=== PATIENT | male | born 1960 | race Caucasian/White ===

== ENCOUNTER 2018-06-19 03:26 | Emergency (ER) | payer OTHER ==
[2018-06-19] MEDS ORDERED: LIDOCAINE 1%/EPINEPHRINE INJ 20 ML VIAL INJ ONE (04:17)
[2018-06-19] MEDS ORDERED: DIPH/PERTUSS(ACELL)/TETANUS VAC/PF 0.5 ML SYR (>=10YO) IM ONE (04:18)
--- NOTE | 2018-06-19 04:59 | ER Document Report ---
ED General - General Chief Complaint: Laceration Stated Complaint: FINGER INJURY Time Seen by Provider: 06/19/18 03:47 Notes: Patient is a very pleasant 57-year-old male who presents with complaint of laceration to left thumb. Laceration occurred at the interphalangeal joint on the palmar aspect of the left thumb. Patient says he cut on glass while moving. He is moving furniture to go back to [place]. Patient says it happened around 6 PM. Denies any numbness or weakness in the thumb. Unsure when last tetanus shot was. No other complaints at this time. TRAVEL OUTSIDE OF THE [place] IN LAST 30 DAYS: No - Related Data Allergies/Adverse Reactions: No Known Allergies Allergy (Unverified 07/01/12 11:53) Past Medical History - Social History Smoking Status: Current Every Day Smoker Chew tobacco use (# tins/day): No Frequency of alcohol use: None Drug Abuse: None Family History: Reviewed & Not Pertinent Patient has suicidal ideation: No Patient has homicidal ideation: No - Past Medical History Cardiac Medical History: Denies: Hx Coronary Artery Disease, Hx Heart Attack, Hx Hypertension Pulmonary Medical History: Reports: Hx Asthma - last attack approx 2 years ago Denies: Hx Bronchitis, Hx COPD, Hx Pneumonia Neurological Medical History: Denies: Hx Cerebrovascular Accident, Hx Seizures Renal/ Medical History: Denies: Hx Peritoneal Dialysis Musculoskeletal Medical History: Reports Hx Arthritis Past Surgical History: Reports: Hx Orthopedic Surgery. Denies: Hx Pacemaker - Immunizations Hx Diphtheria, Pertussis, Tetanus Vaccination: No Review of Systems - Review of Systems Notes: My Normal Review Basic REVIEW OF SYSTEMS: CONSTITUTIONAL : Denies fever, chills, or sweats. Denies recent illness. MUSCULOSKELETAL: Some pain into left thumb. SKIN: Denies rash or skin lesions. NEUROLOGICAL: Denies sensory or motor loss. ALL OTHER SYSTEMS REVIEWED AND NEGATIVE. Physical Exam - Vital signs Vitals: Temp Pulse Resp BP Pulse Ox 97.8 F 65 16 149/96 H 96 06/19/18 03:38 06/19/18 03:38 06/19/18 03:38 06/19/18 03:38 06/19/18 03:38 - Notes Notes: General Appearance: Well nourished, alert, cooperative, no acute distress, no o bvious discomfort. Well-appearing. Vitals: reviewed, See vital signs table. Extremities: strength 5/5 in all extremities, good pulses in all extremities, patient is good distal sensation in his thumb. He is able flex and extend the thumb without difficulty. He has approximately 2 cm laceration that is at the crease of the interphalangeal joint on the palmar aspect of the thumb. Evaluation of the laceration appears that the patient does have visible injury to tendon on the medial aspect of the thumb. Despite this patient is still able to fully oppose the thumb with the fifth digit. He is able to abduct and adduct the thumb. Is able to flex and extend the thumb. Skin: warm, dry, appropriate color, no rash Neuro: speech clear, oriented x 3, normal affect, responds appropriately to qu estions. Course - Re-evaluation Re-evalutation: 06/19/18 05:32 Patient was given tetanus shot. Laceration was thoroughly irrigated and cleaned and sutured closed. Because of the tendon injury patient was placed with aluminum splint to help prevent hyperflexion and hyperextension of the thumb. I encouraged patient to follow-up closely with the orthopedic or hand surgeon within the week. I informed him that they usually want to evaluate this and repair it within a week if they feel repair is necessary. Patient is moving to [place] today. He says that he already has a doctor in [place] and would call them to help set up an appointment. I encouraged him to have the stitches removed in 7 days. I encouraged him to return to ER if he has redness or swelling, signs of infection, or if he has any further concerns. Patient agrees with plan and will be discharged home. Dictation of this chart was performed using voice recognition software; therefore, there may be some unintended grammatical errors. - Vital Signs Vital signs: Temp Pulse Resp BP Pulse Ox 97.8 F 81 19 144/90 H 95 06/19/18 05:15 06/19/18 05:15 06/19/18 05:15 06/19/18 05:15 06/19/18 05:15 Procedures - Immobilization Left Thumb Pre-Proc Neuro Vasc Exam: Normal Immobilizer type: Other - aluminum finger splint Performed by: Provider Post-Proc Neuro Vasc Exam: Normal - Laceration/Wound Repair Left Thumb Wound length (cm): 2 Wound's Depth, Shape: Linear Anesthetic type: 1% Lidocaine w/epi Volume Anesthetic (mLs): 2 Wound explored: Clean Irrigated w/ Saline (mLs): 30 Wound Repaired With: Sutures Suture Size/Type: 5:0, Ethilon Number of Sutures: 4 Post-procedure wound care: Sterile dressing applied, Splint applied Complications: No Discharge - Discharge Clinical Impression: Laceration Condition: Good Disposition: HOME, SELF-CARE Additional Instructions: LACERATION CARE: Your laceration has been sutured to keep the skin edges aligned during healing. The time of suture removal depends on the nature and location of your cut. Please follow the care instructions the doctor has outlined for you and return for further care, according to the schedule you've been given. Keep the wound and dressing clean. Unless you were told otherwise, you may shower daily, blotting the wound dry with a clean, unused towel. At other times, If the dressing gets wet or blood soaked, remove it and blot the wound dry, then reapply a new dressing. Unless you were instructed otherwise, dressings should be changed at least daily. If any signs of infection occur (swelling, redness, drainage, increasing tenderness, red streaks, tender lumps in the armpit or groin above the laceration, or fever), see the doctor immediately. SOAP CLEANSING: Gently wash the wound daily using a mild soap (like Ivory, Phisoderm, Neutrogena). Use warm water, rubbing gently until all debris, ooze, and crusting have been washed from the wound. Allow to dry briefly (about 10 minutes) after cleaning. Repeat this cleansing at least three times a day for the first two days and then once or twice a day. TETANUS IMMUNIZATION GIVEN: You have been given an immunization against tetanus. Please record this in your records. In general, a booster is needed only once every 10 years. The tetanus shot protects against tetanus or "lockjaw," which is a complication of certain wound infections (the tetanus shot cannot protect against the actual infection). The immunization site may become warm and red due to local reaction. If this occurs, apply warm compresses and take aspirin or ibuprofen to reduce inflammation and discomfort. Return for evaluation if the reaction becomes severe. FOLLOW-UP CARE: Your sutures should be removed in ___7__ days. To facilitate a timely removal of your sutures, you may return to the Emergency Department at [facility]. You do not need to call for an appointment, but the best time to come in for suture removal is early in the morning. If you have been referred to another physician for follow-up care, call that physicians office for an appointment as you were instructed. If you experience a significant change in your laceration, or if you are concerned there may be an infection (swelling, redness, drainage, increasing tenderness, red streaks, tender lumps in the armpit or groin above the laceration, or fever), return to the Emergency Department immediately re-evaluation. Please call an orthopedist for follow up within one week for reevaluation of your thumb. This is very important as there is evidence of tendon injury on examination of the wound on your thumb. You can take the splint off for cleaning and dressing changes and than place splint back on. Return to the ER immediately if you have any redness, abnormal swelling, or signs of infection Referrals: YASMANI GAYTAN DO [ACTIVE STAFF] - Follow up in 3-5 days
[2018-06-19 05:17] VITALS: BP 144/90
== END 2018-06-19 05:17 | disposition home or self-care (01) ==
LOC: ER 03:26
DX: S61.012A Laceration without foreign body of left thumb without damage to nail, initial encounter (principal); W26.0XXA Contact with knife, initial encounter; Y93.E6 Activity, residential relocation; Z23 Encounter for immunization; F17.200 Nicotine dependence, unspecified, uncomplicated; J45.909 Unspecified asthma, uncomplicated
CPT/HCPCS: 99283; 90471; 90715; 12001; J3490